=== PATIENT | male | born 1950 | race Caucasian/White ===

== ENCOUNTER 2016-12-31 23:01 | Emergency (ER) | payer OTHER ==
[2017-01-01 00:48] LABS: HEMOGLOBIN 15.6 gm/dl (14.0-17.5); RED BLOOD COUNT 5.26 M/UL (4.20-5.50)
[2017-01-01 01:18] LABS: BUN/CREATININE RATIO 27 (0-10)
== END 2017-01-01 02:35 | disposition home or self-care (01) ==
LOC: ER1 23:01
PROVIDERS: Emergency Medicine
DX: T67.5XXA Heat exhaustion, unspecified, initial encounter (principal); I10 Essential (primary) hypertension; X32.XXXA Exposure to sunlight, initial encounter; Z88.2 Allergy status to sulfonamides
CPT/HCPCS: 36415; 71010; 80053; 82550; 82553; 83605; 83874; 83880; 84484; 85025; 87081; 87880; 93005; 99285